=== PATIENT | female | born 1975 | race Caucasian/White ===

== ENCOUNTER 2017-03-31 13:39 | Emergency (ER) | payer MEDICAID ==
[~2017-03-31] VITALS: Ht 162.6 cm; Wt 108.7 kg
[2017-03-31 13:40] VITALS: BP 119/80
== END 2017-03-31 14:17 | disposition home or self-care (01) ==
LOC: ED 14:06
DX: L24.9 Irritant contact dermatitis, unspecified cause (principal)
CPT/HCPCS: 99283

== ENCOUNTER 2017-11-10 19:26 | Emergency (ER) | payer MEDICAID ==
[~2017-11-10] VITALS: Ht 162.6 cm; Wt 105.6 kg
[2017-11-10 19:36] VITALS: BP 139/83
[2017-11-10 20:41] LABS: RAPID INFLUENZA A Negative (Negative); RAPID INFLUENZA B POSITIVE (Negative)
== END 2017-11-10 21:54 | disposition home or self-care (01) ==
LOC: ED 20:52
DX: J11.1 Influenza due to unidentified influenza virus with other respiratory manifestations (principal); J00 Acute nasopharyngitis [common cold]; J06.9 Acute upper respiratory infection, unspecified
CPT/HCPCS: 71046; 87400; 93005; 99285